=== PATIENT | female | born 1940 | race Caucasian/White ===

== ENCOUNTER 2018-08-26 10:45 | Outpatient (CLI) | payer MEDICARE | END 2018-08-26 10:46 | disposition home or self-care (01) | LOC: BICMAMMO 10:45 | PROVIDERS: ATTEND Internal Medicine Hematology & Oncology | DX: Z08 Encounter for follow-up examination after completed treatment for malignant neoplasm (principal); Z85.3 Personal history of malignant neoplasm of breast | CPT/HCPCS: 77066; G0279 ==

== ENCOUNTER 2019-09-11 11:32 | Outpatient (CLI) | payer MEDICARE ==
--- NOTE | 2019-09-11 14:19 | MMO ---
Bilateral MAMMO Bilat Screen [facility]. CLINICAL HISTORY: Patient is 79 years old and is seen for screening. The patient has no family history of breast cancer. The patient has a history of right Ultrasound Guided Core Biopsy in July,, right Lumpectomy in July, - malignant and right cyst aspiration in June,. VIEWS: The views performed were: bilateral craniocaudal with tomosynthesis and bilateral mediolateral oblique with tomosynthesis. FILMS COMPARED: The present examination has been compared to prior imaging studies performed at [facility] on 07/22/2015, 07/24/2016, 07/26/2017 and 08/26/2018. This study has been interpreted with the assistance of computer-aided detection. MAMMOGRAM FINDINGS: There are scattered fibroglandular densities. Finding 1: There are stable benign appearing calcifications seen in both breasts. Finding 2: There are stable post operative changes seen in the right breast. There are no suspicious masses, suspicious calcifications, or new areas of architectural distortion. IMPRESSION: THERE IS NO MAMMOGRAPHIC EVIDENCE OF MALIGNANCY. A ROUTINE FOLLOW-UP MAMMOGRAM IN 1 YEAR IS RECOMMENDED. THE RESULTS OF THIS EXAM WERE SENT TO THE PATIENT. ACR BI-RADS Category 2 - Benign finding MAMMOGRAPHY NOTE: 1. A negative mammogram report should not delay a biopsy if a dominant of clinically suspicious mass is present. 2. Approximately 10% to 15% of breast cancers are not detected by mammography. 3. Adenosis and dense breasts may obscure an underlying neoplasm. Reported by: SHANNAN LILLY MD Electonically Signed: [id number]
== END 2019-09-11 11:33 | disposition home or self-care (01) ==
LOC: BICMAMMO 11:32
PROVIDERS: ATTEND Internal Medicine Hematology & Oncology
DX: Z12.31 Encounter for screening mammogram for malignant neoplasm of breast (principal)
CPT/HCPCS: 77063; 77067

== ENCOUNTER 2021-02-26 13:53 | Observation (INO) | payer MEDICARE ==
[2021-02-26] MEDS ORDERED: Milk Of Magnesia 30 ML UDCUP PO PRN (15:00)
[2021-02-26] MEDS ORDERED: Calcium Carbonate 500 MG ChewTAB PO PRN (15:00)
[2021-02-26] MEDS ORDERED: Bisacodyl 5 MG TAB PO PRN (15:00)
[2021-02-26] MEDS ORDERED: HYDROcodone/Acetaminophen 5/325 mg Tablet PO PRN ×2 (15:00)
[2021-02-26] MEDS ORDERED: Pepto Bismol Chew TAB PO PRN (15:00)
[2021-02-26] MEDS ORDERED: Furosemide 40 MG/4 ML VIAL SLOW IVP SCH (15:00)
[2021-02-26] MEDS ORDERED: Loperamide HCl 2 MG CAP PO PRN ×2 (15:00)
[2021-02-26] MEDS ORDERED: Ondansetron PF 4 MG/2 ML Vial SLOW IVP PRN (15:00)
[2021-02-26] MEDS ORDERED: Mag-Al 1200 mg/1200 mg/30 ML UDCUP PO PRN (15:00)
[2021-02-26] MEDS ORDERED: Guaifenesin DM 100-10/5 ML UDCUP PO PRN (15:00)
[2021-02-26 15:09] VITALS: BMI 28.3
[2021-02-26 15:25] LABS: #Eosinphils 0.3 thou/uL (0.0-0.7); #Lymphocytes 1.6 thou/uL (1.20-3.40); #Monocytes 0.8 thou/uL (0.11-0.59); #Neutrophils 3.3 thou/uL (1.40-6.50); %Basophils 0.7 % (0.0-1.0); %Eosinophils 4.2 % (0.0-10.0); %Lymphocytes 26.7 % (21.0-51.0); %Monocytes 12.8 % (0.0-10.0); %Neutrophils 55.6 % (42.0-75.0); Hemoglobin 11.9 g/dL (12.0-16.0); Mean Corpuscular HGB CONC 33.7 g/dL (32.0-36.0); Mean Corpuscular Hemoglobin 28.3 pg (27.0-31.0); Mean Corpuscular Volume 84.2 fL (78.0-98.0); Mean Platelet Volume 7.8 fL (7.4-10.4); Platelet Count 194 thou/uL (130-400); RBC Distribution Width 12.6 % (11.5-14.5); Red Blood Cell (RBC) Count 4.19 mill/uL (4.20-5.40)
[2021-02-26 15:50] LABS: ALT (SGPT) 58 U/L (8-55); AST (SGOT) 32 U/L (5-34); Albumin 3.7 g/dL (3.4-4.8); Alkaline Phosphatase 96 U/L (40-110); Anion Gap 11 mmol/L (10-20); BUN (Urea Nitrogen) 22 mg/dL (9.8-20.1); Bilirubin, Total 0.3 mg/dL (0.2-1.2); Calc. Creatinine Clearance 49 mL/min (70-130); Calcium 9.5 mg/dL (7.8-10.44); Carbon Dioxide 22 mmol/L (23-31); Chloride 109 mmol/L (98-107); Globulin 2.9 g/dL (2.4-3.5); Glucose 112 mg/dL (83-110); Protein, Total 6.6 g/dL (5.8-8.1); Sodium 138 mmol/L (136-145)
[2021-02-26 16:04] LABS: Free T4 (Free Thyroxine) 0.98 ng/dL (0.70-1.48); Thyroid Stimulating Hormone 1.1278 uIU/mL (0.35-4.94)
[2021-02-26] MEDS ORDERED: Atorvastatin Calcium 40 MG TAB PO SCH (21:00)
[2021-02-26] MEDS: Famotidine 20 MG TAB PO SCH (22:22)
[2021-02-26] MEDS: Flecainide 50 MG TAB PO SCH (22:22)
[2021-02-26] MEDS: Apixaban 5 MG TAB PO SCH (22:22)
[2021-02-26] MEDS: Carvedilol 25 MG TAB PO SCH (22:23)
[2021-02-27] MEDS ORDERED: PROPOFOL 200 MG/20 ML VIAL ONE (08:38)
[2021-02-27] MEDS ORDERED: Lisinopril 10 MG TAB PO SCH (09:00)
[2021-02-27] MEDS ORDERED: Aspirin 81 mg Enteric Coated Tablet PO SCH (09:00)
[2021-02-27] MEDS ORDERED: Amlodipine 10 MG TAB PO SCH (09:00)
[2021-02-27] MEDS ORDERED: PROPOFOL 20 ML ONE (09:02)
[2021-02-27] MEDS: Famotidine 20 MG TAB PO SCH (10:21)
[2021-02-27] MEDS: Flecainide 50 MG TAB PO SCH (10:22)
[2021-02-27] MEDS: Apixaban 5 MG TAB PO SCH (10:23)
[2021-02-27] MEDS: Carvedilol 25 MG TAB PO SCH (10:24)
[2021-02-27 11:48] LABS: SARS-CoV-2 PCR by NAA Not Detected (NotDetected)
[2021-02-27 17:09] VITALS: BP 110/64; TEMP 98.3
[2021-02-28] MEDS ORDERED: Fluticasone Propionate Nasal Spray 16 gm Bottle FS SCH (09:00)
== END 2021-02-27 17:19 | disposition home or self-care (01) ==
LOC: 2SW 14:24
PROVIDERS: ADMIT Internal Medicine Cardiovascular Disease; ATTEND Internal Medicine Cardiovascular Disease
PROC: 5A2204Z Restoration of Cardiac Rhythm, Single (ICD-10-PCS; principal; 2021-02-26)
DX: I48.0 Paroxysmal atrial fibrillation (principal); I11.0 Hypertensive heart disease with heart failure; I50.33 Acute on chronic diastolic (congestive) heart failure; I25.10 Atherosclerotic heart disease of native coronary artery without angina pectoris; I45.10 Unspecified right bundle-branch block; E78.5 Hyperlipidemia, unspecified; G47.30 Sleep apnea, unspecified; Q21.1 Atrial septal defect; Z85.038 Personal history of other malignant neoplasm of large intestine; Z85.3 Personal history of malignant neoplasm of breast; Z79.82 Long term (current) use of aspirin; Z79.899 Other long term (current) drug therapy; Z88.2 Allergy status to sulfonamides; Z20.822 Contact with and (suspected) exposure to COVID-19
CPT/HCPCS: 71046; 83880; 84439; 92960; 93005 ×2; 96374; G0378 ×2; U0003; U0005; 36415; 80053; 84443; 85025; 93010; J1940; J2704

== ENCOUNTER 2022-01-28 00:47 | Observation (INO) | payer MEDICARE ==
[2022-01-28 01:27] LABS: #Eosinphils 0.2 thou/uL (0.0-0.7); #Monocytes 0.8 thou/uL (0.11-0.59); #Neutrophils 5.1 thou/uL (1.40-6.50); %Basophils 0.5 % (0.0-1.0); %Eosinophils 2.5 % (0.0-10.0); %Lymphocytes 24.4 % (21.0-51.0); %Monocytes 9.4 % (0.0-10.0); %Neutrophils 63.2 % (42.0-75.0); Hemoglobin 13.4 g/dL (12.0-16.0); Mean Corpuscular HGB CONC 32.1 g/dL (32.0-36.0); Mean Corpuscular Hemoglobin 27.8 pg (27.0-31.0); Mean Corpuscular Volume 86.4 fL (78.0-98.0); Mean Platelet Volume 7.9 fL (7.4-10.4); Platelet Count 208 thou/uL (130-400); RBC Distribution Width 12.8 % (11.5-14.5); Red Blood Cell (RBC) Count 4.82 mill/uL (4.20-5.40); White Blood Cell (WBC) Count 8.1 thou/uL (4.8-10.8)
[2022-01-28 01:48] LABS: ALT (SGPT) 18 U/L (8-55); AST (SGOT) 22 U/L (5-34); Albumin 3.9 g/dL (3.4-4.8); Alkaline Phosphatase 97 U/L (40-110); Anion Gap 12 mmol/L (10-20); BUN (Urea Nitrogen) 25 mg/dL (9.8-20.1); Bilirubin, Total 0.4 mg/dL (0.2-1.2); CK (CPK) 78 U/L (29-168); Calc. Creatinine Clearance 0 mL/min (70-130); Carbon Dioxide 23 mmol/L (23-31); Chloride 107 mmol/L (98-107); Globulin 3.1 g/dL (2.4-3.5); Glucose 114 mg/dL (83-110); Potassium 3.9 mmol/L (3.5-5.1); Sodium 138 mmol/L (136-145)
[2022-01-28] MEDS ORDERED: Ondansetron PF 4 MG/2 ML Vial IVP PRN (03:35)
[2022-01-28] MEDS ORDERED: Acetaminophen 325 MG TAB PO PRN (03:35)
[2022-01-28 04:37] LABS: Troponin I 0.014 ng/mL (< 0.028)
[2022-01-28 05:01] VITALS: BMI 25.5
[2022-01-28 07:49] LABS: Troponin I 0.023 ng/mL (< 0.028)
[2022-01-28] MEDS ORDERED: Carvedilol 25 MG TAB PO SCH (09:00)
[2022-01-28] MEDS ORDERED: Flecainide 50 MG TAB PO SCH (09:00)
[2022-01-28] MEDS ORDERED: Aspirin 81 mg Enteric Coated Tablet PO SCH (09:00)
[2022-01-28] MEDS ORDERED: Apixaban 5 MG TAB PO SCH (09:00)
[2022-01-28] MEDS ORDERED: Carvedilol 6.25 MG TAB PO SCH (09:00)
[2022-01-28 12:03] LABS: SARS-CoV-2 PCR by NAA Not Detected (NotDetected)
[2022-01-28 15:57] VITALS: TEMP 98.5
[2022-01-28] MEDS ORDERED: Atorvastatin Calcium 40 MG TAB PO SCH (21:00)
== END 2022-01-28 18:46 | disposition home or self-care (01) ==
LOC: ERS 00:47 → INTOOBSV 03:38 → IMCU/EMU 03:38
PROVIDERS: ADMIT Internal Medicine; ATTEND Internal Medicine
DX: I48.0 Paroxysmal atrial fibrillation (principal); R07.89 Other chest pain; I11.0 Hypertensive heart disease with heart failure; I50.32 Chronic diastolic (congestive) heart failure; I25.10 Atherosclerotic heart disease of native coronary artery without angina pectoris; F41.9 Anxiety disorder, unspecified; E78.5 Hyperlipidemia, unspecified; I49.3 Ventricular premature depolarization; I45.10 Unspecified right bundle-branch block; Z85.038 Personal history of other malignant neoplasm of large intestine; Z85.3 Personal history of malignant neoplasm of breast; Z92.21 Personal history of antineoplastic chemotherapy; Z92.3 Personal history of irradiation; Z91.14 Patient's other noncompliance with medication regimen; Z79.01 Long term (current) use of anticoagulants; Z79.82 Long term (current) use of aspirin; Z79.899 Other long term (current) drug therapy; Z88.2 Allergy status to sulfonamides; Z95.5 Presence of coronary angioplasty implant and graft; Z90.49 Acquired absence of other specified parts of digestive tract; Z20.822 Contact with and (suspected) exposure to COVID-19
CPT/HCPCS: 71045; 82550; 83735; 84484 ×2; 93005; U0003; U0005; 36415; 80053; 84443; 85025; 96365; 96376

== ENCOUNTER 2022-02-24 16:27 | Observation (INO) | payer MEDICARE ==
[2022-02-24 17:32] LABS: #Basophils 0.1 thou/uL (0.0-0.2); #Eosinphils 0.2 thou/uL (0.0-0.7); #Lymphocytes 1.7 thou/uL (1.20-3.40); #Monocytes 0.6 thou/uL (0.11-0.59); %Basophils 1.4 % (0.0-1.0); %Eosinophils 3.8 % (0.0-10.0); %Lymphocytes 30.9 % (21.0-51.0); %Monocytes 10.4 % (0.0-10.0); %Neutrophils 53.5 % (42.0-75.0); Hemoglobin 12.9 g/dL (12.0-16.0); Mean Corpuscular HGB CONC 31.3 g/dL (32.0-36.0); Mean Corpuscular Hemoglobin 27.1 pg (27.0-31.0); Mean Corpuscular Volume 86.7 fL (78.0-98.0); Platelet Count 183 thou/uL (130-400); RBC Distribution Width 12.9 % (11.5-14.5); Red Blood Cell (RBC) Count 4.74 mill/uL (4.20-5.40); White Blood Cell (WBC) Count 5.6 thou/uL (4.8-10.8)
[2022-02-24 17:55] LABS: ALT (SGPT) 15 U/L (8-55); AST (SGOT) 18 U/L (5-34); Albumin 3.8 g/dL (3.4-4.8); Alkaline Phosphatase 87 U/L (40-110); Anion Gap 10 mmol/L (10-20); BUN (Urea Nitrogen) 22 mg/dL (9.8-20.1); Bilirubin, Total 0.3 mg/dL (0.2-1.2); Calc. Creatinine Clearance 0 mL/min (70-130); Calcium 9.6 mg/dL (7.8-10.44); Carbon Dioxide 25 mmol/L (23-31); Chloride 106 mmol/L (98-107); Globulin 3.1 g/dL (2.4-3.5); Glucose 91 mg/dL (83-110); Potassium 4.1 mmol/L (3.5-5.1); Protein, Total 6.9 g/dL (5.8-8.1); Sodium 137 mmol/L (136-145)
[2022-02-24] MEDS ORDERED: hydrALAZINE 25 MG TAB ONE (19:55)
[2022-02-24] MEDS ORDERED: Lisinopril 10 MG TAB ONE (20:47)
[2022-02-24] MEDS ORDERED: Acetaminophen 325 MG TAB PO PRN (22:43)
[2022-02-24 23:17] VITALS: BMI 25.3
[2022-02-25 01:13] LABS: Troponin I Less than 0.010 ng/mL (< 0.028)
[2022-02-25 04:37] LABS: Troponin I Less than 0.010 ng/mL (< 0.028)
[2022-02-25] MEDS ORDERED: Lisinopril 10 MG TAB PO SCH (09:00)
[2022-02-25] MEDS ORDERED: Carvedilol 25 MG TAB PO SCH (09:00)
[2022-02-25] MEDS ORDERED: Flecainide 50 MG TAB PO SCH (09:00)
[2022-02-25] MEDS ORDERED: Aspirin 81 mg Enteric Coated Tablet PO SCH (09:00)
[2022-02-25] MEDS ORDERED: Apixaban 5 MG TAB PO SCH (09:00)
[2022-02-25 12:50] VITALS: BP 119/59; TEMP 98.3
[2022-02-25 13:09] LABS: SARS-CoV-2 PCR by NAA Not Detected (NotDetected)
[2022-02-25] MEDS ORDERED: Atorvastatin Calcium 40 MG TAB PO SCH (21:00)
== END 2022-02-25 13:25 | disposition home or self-care (01) ==
LOC: ERS 16:27 → 2NO 22:12
PROVIDERS: ADMIT Emergency Medicine; ATTEND Emergency Medicine
DX: I10 Essential (primary) hypertension (principal); I48.91 Unspecified atrial fibrillation; E78.5 Hyperlipidemia, unspecified; Z85.038 Personal history of other malignant neoplasm of large intestine; Z85.3 Personal history of malignant neoplasm of breast; Z79.01 Long term (current) use of anticoagulants; Z79.82 Long term (current) use of aspirin; Z79.899 Other long term (current) drug therapy; Z88.2 Allergy status to sulfonamides; Z90.49 Acquired absence of other specified parts of digestive tract; Z20.822 Contact with and (suspected) exposure to COVID-19
CPT/HCPCS: 80053; 82553; 84484 ×2; 85025; 93005; G0378 ×3; U0003; U0005; 36415

== ENCOUNTER 2024-10-05 16:25 | Inpatient (IN) | payer MEDICARE ==
[2024-10-05] MEDS ORDERED: Ondansetron ODT 4 MG TAB PO PRN (19:46)
[2024-10-05 21:17] LABS: Magnesium 1.8 mg/dL (1.6-2.6)
[2024-10-05] MEDS: Aspirin 81 mg Enteric Coated Tablet PO SCH (21:25)
[2024-10-05] MEDS: Apixaban 5 MG TAB PO SCH (21:25)
[2024-10-05] MEDS: Sertraline 25 MG TAB PO SCH (21:25)
[2024-10-05] MEDS: Atorvastatin Calcium 40 MG TAB PO SCH (21:25)
[2024-10-05] MEDS: Carvedilol 3.125 MG TAB PO SCH (21:25)
[2024-10-05] MEDS: Lisinopril 20 MG TAB PO SCH (21:25)
[2024-10-06 05:01] LABS: #Basophils 0.04 10x3/uL (0.0-0.2); %Basophils 0.7 % (0.0-1.0); %Eosinophils 2.1 % (0.0-10.0); %Lymphocytes 14.8 % (21.0-51.0); %Monocytes 14.3 % (0.0-10.0); %Neutrophils 67.8 % (42.0-75.0); Hematocrit 41.7 % (36.0-47.0); Hemoglobin 13.5 g/dL (12.0-16.0); Mean Corpuscular HGB CONC 32.4 g/dL (32.0-36.0); Mean Corpuscular Volume 80.3 fL (78.0-98.0); Mean Platelet Volume 10.1 fL (7.4-10.4); Platelet Count 178 10x3/uL (130-400); RBC Distribution Width 14.6 % (11.5-14.5); Red Blood Cell (RBC) Count 5.19 mill/uL (4.20-5.40)
[2024-10-06] MEDS: Carvedilol 6.25 MG TAB PO SCH (08:45)
[2024-10-06] MEDS: Acetaminophen 325 MG TAB PO PRN (08:45)
[2024-10-06 09:19] LABS: Anion Gap 11 mmol/L (10-20); BUN (Urea Nitrogen) 13 mg/dL (9.8-20.1); Calc. Creatinine Clearance 58 mL/min (70-130); Calcium 9.1 mg/dL (7.8-10.44); Carbon Dioxide 17 mmol/L (23-31); Chloride 105 mmol/L (98-107); Estimated GFR 85; Glucose 125 mg/dL (83-110); Sodium 129 mmol/L (136-145)
[2024-10-06] MEDS: Magnesium Oxide 400 MG TAB PO SCH ×2 (10:07→21:37)
[2024-10-06 12:06] VITALS: BMI 18.6
[2024-10-06 14:42] VITALS: BMI 25.2
[2024-10-06] MEDS: dilTIAZem 125 MG in Sodium Chloride 0.9% 100 ML IVPB SCH (17:13)
[2024-10-07 05:12] LABS: Hematocrit 39.3 % (36.0-47.0); Hemoglobin 12.8 g/dL (12.0-16.0); Mean Corpuscular HGB CONC 32.6 g/dL (32.0-36.0); Mean Corpuscular Hemoglobin 26.1 pg (27.0-31.0); Mean Corpuscular Volume 80.2 fL (78.0-98.0); Mean Platelet Volume 10.4 fL (7.4-10.4); Platelet Count 147 10x3/uL (130-400); RBC Distribution Width 14.5 % (11.5-14.5)
[2024-10-07 05:44] LABS: Band 4 % (5-11); Burr Cells SLIGHT = 2-5 cells HPF (0-1); Large Platelets 6.1 % (0-5); Lymphocytes 10 % (21-51); Monocytes 13 % (0-10); Neutrophil 72 % (42-75); Platelet Adequacy Comment Platelets Normal; Smudge Cells 15.3 %
[2024-10-07] MEDS: Benzonatate 100 MG CAP PO PRN (05:53)
[2024-10-07] MEDS ORDERED: FLU (Fluad Triv) TS24-25 (65UP)/MF59C/PF 45 MCG/0.5 ML Syringe IM ONE (09:00)
[2024-10-07 09:50] LABS: Phosphorus 1.9 mg/dL (2.3-4.7)
[2024-10-07 09:51] LABS: ALT (SGPT) 22 U/L (8-55); AST (SGOT) 35 U/L (5-34); Albumin 3.1 g/dL (3.4-4.8); Alkaline Phosphatase 84 U/L (40-110); Anion Gap 12 mmol/L (10-20); BUN (Urea Nitrogen) 16 mg/dL (9.8-20.1); Bilirubin, Total 0.6 mg/dL (0.2-1.2); Calc. Creatinine Clearance 52 mL/min (70-130); Calcium 8.8 mg/dL (7.8-10.44); Carbon Dioxide 23 mmol/L (23-31); Chloride 99 mmol/L (98-107); Estimated GFR 77; Globulin 3.2 g/dL (2.4-3.5); Glucose 150 mg/dL (83-110); Magnesium 1.7 mg/dL (1.6-2.6); Potassium 3.7 mmol/L (3.5-5.1); Protein, Total 6.3 g/dL (5.8-8.1); Sodium 130 mmol/L (136-145)
[2024-10-07] MEDS: dilTIAZem 30 MG TAB PO SCH ×2 (14:54→18:25)
[2024-10-08 03:48] LABS: #Basophils Less than 0.03 10x3/uL (0.0-0.2); #Eosinophils Less than 0.03 10x3/uL (0.0-0.7); %Basophils 0.2 % (0.0-1.0); %Lymphocytes 22.3 % (21.0-51.0); %Neutrophils 60.3 % (42.0-75.0); Mean Corpuscular HGB CONC 32.4 g/dL (32.0-36.0); Mean Corpuscular Hemoglobin 25.5 pg (27.0-31.0); Mean Corpuscular Volume 78.7 fL (78.0-98.0); Mean Platelet Volume 10.9 fL (7.4-10.4); Platelet Count 131 10x3/uL (130-400); RBC Distribution Width 14.3 % (11.5-14.5)
[2024-10-08 06:42] LABS: ALT (SGPT) 21 U/L (8-55); AST (SGOT) 34 U/L (5-34); Albumin 2.9 g/dL (3.4-4.8); Alkaline Phosphatase 75 U/L (40-110); Anion Gap 12 mmol/L (10-20); BUN (Urea Nitrogen) 20 mg/dL (9.8-20.1); Bilirubin, Total 0.6 mg/dL (0.2-1.2); Calc. Creatinine Clearance 47 mL/min (70-130); Calcium 8.7 mg/dL (7.8-10.44); Carbon Dioxide 21 mmol/L (23-31); Chloride 102 mmol/L (98-107); Estimated GFR 69; Globulin 3.1 g/dL (2.4-3.5); Glucose 100 mg/dL (83-110); Potassium 3.6 mmol/L (3.5-5.1); Sodium 131 mmol/L (136-145)
[2024-10-08] MEDS: dilTIAZem 30 MG TAB PO SCH (09:42)
[2024-10-08] MEDS ORDERED: Electrolyte Replacement Protocol FS PRN (10:30)
[2024-10-08] MEDS ORDERED: Electrolyte Replacement Protocol 1 EACH FS SCH (10:30)
[2024-10-08] MEDS: Magnesium 2 GM/50 ML(in water) 2 GM in Premix 1 BAG IVPB SCH ×2 (14:58→15:11)
[2024-10-08] MEDS: PHOS-NAK 1 PKT PACK PO SCH (15:12)
[2024-10-08] MEDS: Apixaban 2.5 MG TAB PO SCH (21:50)
[2024-10-08] MEDS: guaiFENesin ER 600 MG TAB PO SCH (22:44)
[2024-10-09 05:03] LABS: #Basophils Less than 0.03 10x3/uL (0.0-0.2); %Basophils 0.3 % (0.0-1.0); %Eosinophils 0.8 % (0.0-10.0); %Lymphocytes 31.9 % (21.0-51.0); %Monocytes 14.8 % (0.0-10.0); %Neutrophils 51.9 % (42.0-75.0); Magnesium 2.1 mg/dL (1.6-2.6); Mean Corpuscular HGB CONC 33.3 g/dL (32.0-36.0); Mean Corpuscular Hemoglobin 25.8 pg (27.0-31.0); Mean Corpuscular Volume 77.5 fL (78.0-98.0); Mean Platelet Volume 10.5 fL (7.4-10.4); Platelet Count 121 10x3/uL (130-400); RBC Distribution Width 14.3 % (11.5-14.5); Red Blood Cell (RBC) Count 5.03 mill/uL (4.20-5.40)
[2024-10-09 05:18] LABS: Phosphorus 2.9 mg/dL (2.3-4.7)
[2024-10-09] MEDS ORDERED: guaiFENesin ER 600 MG TAB PO SCH (09:00)
[2024-10-09] MEDS: guaiFENesin ER 600 MG TAB PO SCH (09:27)
[2024-10-10 04:51] LABS: Hematocrit 38.7 % (36.0-47.0); Hemoglobin 12.7 g/dL (12.0-16.0); Mean Corpuscular HGB CONC 32.8 g/dL (32.0-36.0); Mean Corpuscular Volume 79.3 fL (78.0-98.0); Mean Platelet Volume 10.5 fL (7.4-10.4); Platelet Count 130 10x3/uL (130-400); RBC Distribution Width 14.1 % (11.5-14.5); Red Blood Cell (RBC) Count 4.88 mill/uL (4.20-5.40)
[2024-10-10 07:02] LABS: Anisocytosis MODERATE=16-30 cells HPF (0-5); Band 7 % (5-11); Burr Cells MODERATE= 6-15 cells HPF (0-1); Elliptocytes SLIGHT = 2-5 cells HPF (0-1); Large Platelets 11.8 % (0-5); Lymphocytes 20 % (21-51); Monocytes 11 % (0-10); Neutrophil 62 % (42-75); Platelet Adequacy Comment Platelets Normal; Poikilocytosis SLIGHT = 6-15 cells HPF (0-5); Polychromasia SLIGHT = 2-3 cells HPF (0-2); Reactive Lymphocytes 1 % (0-10); Smudge Cells 18.6 %
[2024-10-10 10:32] LABS: ALT (SGPT) 22 U/L (8-55); AST (SGOT) 29 U/L (5-34); Albumin 2.9 g/dL (3.4-4.8); Alkaline Phosphatase 85 U/L (40-110); Anion Gap 8 mmol/L (10-20); BUN (Urea Nitrogen) 12 mg/dL (9.8-20.1); Bilirubin, Total 0.5 mg/dL (0.2-1.2); Calc. Creatinine Clearance 55 mL/min (70-130); Calcium 9.2 mg/dL (7.8-10.44); Carbon Dioxide 29 mmol/L (23-31); Chloride 101 mmol/L (98-107); Estimated GFR 83; Globulin 3.5 g/dL (2.4-3.5); Glucose 126 mg/dL (83-110); Potassium 4.2 mmol/L (3.5-5.1); Protein, Total 6.4 g/dL (5.8-8.1); Sodium 134 mmol/L (136-145)
[2024-10-10 11:26] VITALS: BP 124/77; TEMP 97.8
== END 2024-10-10 16:23 | DRG 308 ==
LOC: 2NO 16:25
PROVIDERS: ADMIT Internal Medicine; ATTEND Internal Medicine
DX: I48.19 Other persistent atrial fibrillation (principal); G93.41 Metabolic encephalopathy; E87.1 Hypo-osmolality and hyponatremia; I25.10 Atherosclerotic heart disease of native coronary artery without angina pectoris; E78.5 Hyperlipidemia, unspecified; E83.42 Hypomagnesemia; F41.9 Anxiety disorder, unspecified; I95.2 Hypotension due to drugs; T46.1X1A Poisoning by calcium-channel blockers, accidental (unintentional), initial encounter; X58.XXXA Exposure to other specified factors, initial encounter; G47.33 Obstructive sleep apnea (adult) (pediatric); I10 Essential (primary) hypertension; Z66 Do not resuscitate; J06.9 Acute upper respiratory infection, unspecified; Z90.49 Acquired absence of other specified parts of digestive tract; Z85.038 Personal history of other malignant neoplasm of large intestine; Z95.820 Peripheral vascular angioplasty status with implants and grafts; Z85.3 Personal history of malignant neoplasm of breast; Z88.2 Allergy status to sulfonamides; Z79.01 Long term (current) use of anticoagulants; Z79.02 Long term (current) use of antithrombotics/antiplatelets; Z79.899 Other long term (current) drug therapy; Z98.51 Tubal ligation status
CPT/HCPCS: 36415; 70450; 80048; 80053; 83735; 83930; 83935; 84100; 84300; 85025; 87040; 87077; 87086; 87149; 87186; 87324; 87449; J3475

== ENCOUNTER 2025-08-30 13:11 | Outpatient (CLI) | payer MEDICARE ==
[2025-08-30 13:48] LABS: Estimated GFR - POC 62.0
== END 2025-08-30 13:12 | disposition home or self-care (01) ==
LOC: CT 13:11
PROVIDERS: ATTEND Internal Medicine Cardiovascular Disease
DX: R41.3 Other amnesia (principal); I67.82 Cerebral ischemia
CPT/HCPCS: 36415; 70470; 82565

== ENCOUNTER 2025-09-13 14:17 | Emergency (ER) | payer MEDICARE ==
[2025-09-13] MEDS ORDERED: Apixaban 5 MG TAB ONE (16:08)
[2025-09-13] MEDS ORDERED: Carvedilol 6.25 MG TAB ONE (16:08)
[2025-09-13] MEDS ORDERED: Lisinopril 10 MG TAB ONE (16:08)
== END 2025-09-13 17:57 | disposition home or self-care (01) ==
LOC: ERS 14:17
DX: I10 Essential (primary) hypertension (principal); I25.10 Atherosclerotic heart disease of native coronary artery without angina pectoris; I48.91 Unspecified atrial fibrillation; Z79.01 Long term (current) use of anticoagulants; Z79.82 Long term (current) use of aspirin; Z79.899 Other long term (current) drug therapy
CPT/HCPCS: 70450

== ENCOUNTER → 2025-09-13 | Day surgery (SDC) | payer MEDICARE ==
[2025-09-12 10:23] VITALS: BMI 20.7
[~2025-09-13] MED LIST: cloNIDine 0.1 MG TAB ONE
[2025-09-13 13:41] LABS: #Basophils 0.04 10x3/uL (0.0-0.2); #Eosinophils 0.13 10x3/uL (0.0-0.7); #Monocytes 0.77 10x3/uL (0.11-0.59); #Neutrophils 3.00 10x3/uL (1.40-6.50); %Basophils 0.7 % (0.0-1.0); %Eosinophils 2.3 % (0.0-10.0); %Lymphocytes 31.1 % (21.0-51.0); %Monocytes 13.4 % (0.0-10.0); %Neutrophils 52.2 % (42.0-75.0); Hematocrit 44.1 % (36.0-47.0); Hemoglobin 13.9 g/dL (12.0-16.0); Mean Corpuscular Hemoglobin 25.5 pg (27.0-31.0); Mean Corpuscular Volume 80.8 fL (78.0-98.0); Platelet Count 212 10x3/uL (130-400); Red Blood Cell (RBC) Count 5.46 mill/uL (4.20-5.40); White Blood Cell (WBC) Count 5.75 10x3/uL (4.8-10.8)
[2025-09-13 13:49] LABS: Anion Gap 14 mmol/L (10-20); BUN (Urea Nitrogen) 18 mg/dL (9.8-20.1); Calc. Creatinine Clearance 39 mL/min (70-130); Calcium 10.2 mg/dL (7.8-10.44); Carbon Dioxide 22 mmol/L (23-31); Chloride 106 mmol/L (98-107); Glucose 92 mg/dL (83-110); Potassium 4.7 mmol/L (3.5-5.1); Sodium 137 mmol/L (136-145)
== END ==
LOC: SDC 10:34
PROVIDERS: ATTEND Internal Medicine Cardiovascular Disease
DX: I48.91 Unspecified atrial fibrillation (principal); Z53.9 Procedure and treatment not carried out, unspecified reason; I48.92 Unspecified atrial flutter; I10 Essential (primary) hypertension; Z88.2 Allergy status to sulfonamides; Z79.01 Long term (current) use of anticoagulants
CPT/HCPCS: 80048; 85025